=== PATIENT | female | born 1955 | race Caucasian/White ===

== ENCOUNTER 2018-02-25 08:13 | Observation (INO) | payer MEDICARE ==
[~2018-02-25 08:13] MED LIST: CEFAZOLIN 2 GM/50 ML (PMX) 50 ML IVPB; TRANEXAMIC ACID 1,000 MG in DEXTROSE 5% 100 ML IVPB
[2018-02-25] MEDS: GABAPENTIN 300 MG CAP PO ×2 (08:41→21:00)
[2018-02-25] MEDS: traMADol 50 MG TAB PO ×2 (08:41→08:44)
[2018-02-25] MEDS: DEXAMETHASONE 1 MG TAB PO (08:41)
[2018-02-25] MEDS ORDERED: SOD CHLORIDE 0.9% 100 ML, TRANEXAMIC ACID 3,000 MG IRR (10:00)
[2018-02-25] MEDS ORDERED: FENTAnyl 50 MCG/ML VIAL (10:35)
[2018-02-25] MEDS ORDERED: MIDAZOLAM 1 MG/ML 2 ML INJ (10:38)
[2018-02-25] MEDS: POLYMYXIN/BACITRACIN 1L IRRIG (11:03)
[2018-02-25] MEDS: THROMBIN 5000 UNIT VIAL (11:04)
[2018-02-25] MEDS: CA CHLORIDE 10% 10 ML SYRINGE (11:04)
[2018-02-25] MEDS: BUPIVACAINE 0.5% (SDV) 30 ML, EPINEPHrine 0.3 MG, KETOROLAC 30 MG, CLONIDINE 100 MCG, S... IRR (11:12)
[2018-02-25] MEDS ORDERED: ALBUTEROL HFA 8 GM INHALER INH (11:30)
[2018-02-25] MEDS ORDERED: ONDANSETRON 4 MG INJ IV (11:30)
[2018-02-25] MEDS ORDERED: DIPHENHYDRAMINE 50 MG INJ IV (11:30)
[2018-02-25] MEDS ORDERED: ACETAMINOPHEN 500 MG TAB PO (11:30)
[2018-02-25] MEDS ORDERED: OXYCODONE/ACETAMINOPHEN (5/325) TAB PO (11:30)
[2018-02-25] MEDS ORDERED: morphine 2 MG INJ IV (11:30)
[2018-02-25] MEDS ORDERED: ZOLPIDEM 5 MG TAB PO (11:30)
[2018-02-25] MEDS ORDERED: ROCURONIUM 50 MG INJ (11:44)
[2018-02-25] MEDS ORDERED: SUGAMMADEX SODIUM 200 MG/2 ML VIAL IV (11:44)
[2018-02-25] MEDS ORDERED: LIDOCAINE 100 MG SYRINGE (11:44)
[2018-02-25] MEDS ORDERED: PROPOFOL 20 ML (11:44)
[2018-02-25] MEDS ORDERED: CEFAZOLIN 1 GM INJ (11:44)
[2018-02-25] MEDS ORDERED: SUCCINYLCHOLINE CHLORIDE 100 MG/5 ML SYG IV (11:44)
[2018-02-25] MEDS: morphine 2 MG INJ IV (12:15)
[2018-02-25] MEDS: KETOROLAC 15 MG INJ IV (12:16)
[2018-02-25] MEDS: TRANEXAMIC ACID 1,000 MG in DEXTROSE 5% 100 ML IV (12:19)
[2018-02-25] MEDS: CEFAZOLIN 1 GM/50 ML (PMX) 50 ML IVPB ×2 (12:28→21:08)
[2018-02-25] MEDS: DEXAMETHASONE 2 MG TAB PO ×3 (12:35→23:36)
[2018-02-25] MEDS: LACTATED RINGER'S 1,000 ML IV ×2 (14:33→21:28)
[2018-02-25] MEDS: PANTOPRAZOLE (EC) 40 MG TAB PO (17:20)
[2018-02-25] MEDS: BACLOFEN 10 MG TAB PO ×2 (17:20→21:11)
[2018-02-25] MEDS ORDERED: AZELAIC ACID TP (21:00)
[2018-02-25] MEDS: OXYCODONE/ACETAMINOPHEN (5/325) TAB PO (21:05)
[2018-02-25] MEDS: SENNA/DOCUSATE NA (8.6MG/50MG) TAB PO (21:10)
[2018-02-25] MEDS: MONTELUKAST 10 MG TAB PO (21:11)
[2018-02-25] MEDS: GABAPENTIN 100 MG CAP PO (21:11)
[2018-02-25] MEDS: HYDROmorphONE 0.5 MG/0.5 ML SYG IV (23:36)
[2018-02-26] MEDS: CEFAZOLIN 1 GM/50 ML (PMX) 50 ML IVPB (03:56)
[2018-02-26] MEDS: OXYCODONE/ACETAMINOPHEN (5/325) TAB PO ×4 (04:02→23:49)
[2018-02-26] MEDS: LEVOTHYROXINE 100 MCG TAB PO (06:12)
[2018-02-26] MEDS: DEXAMETHASONE 2 MG TAB PO (06:12)
[2018-02-26] MEDS: PANTOPRAZOLE (EC) 40 MG TAB PO ×2 (06:16→17:17)
[2018-02-26] MEDS: LACTATED RINGER'S 1,000 ML IV ×2 (07:28→17:14)
[2018-02-26] MEDS: LORATADINE 10 MG TAB PO (09:54)
[2018-02-26] MEDS: BACLOFEN 10 MG TAB PO ×3 (09:54→21:00)
[2018-02-26] MEDS: GABAPENTIN 100 MG CAP PO ×2 (09:54→21:00)
[2018-02-26] MEDS: FLUOXETINE 20 MG CAP PO (09:54)
[2018-02-26] MEDS: SENNA/DOCUSATE NA (8.6MG/50MG) TAB PO ×2 (09:54→20:59)
[2018-02-26] MEDS: ASPIRIN 81 MG TAB PO (09:54)
[2018-02-26] MEDS: KETOROLAC 15 MG INJ IV ×3 (09:55→21:01)
[2018-02-26] MEDS ORDERED: VITAMIN A & D 5 GM OINT PACKET TOP (12:26)
[2018-02-26] MEDS: MAGNESIUM HYDROXIDE 30ML CUP PO (15:17)
[2018-02-26] MEDS: POLYETHYLENE GLYCOL 17 GM PACKET PO (16:24)
[2018-02-26] MEDS: MONTELUKAST 10 MG TAB PO (21:00)
[2018-02-26] MEDS: GABAPENTIN 300 MG CAP PO (21:01)
[2018-02-27] MEDS: LACTATED RINGER'S 1,000 ML IV ×2 (03:28→13:28)
[2018-02-27] MEDS: KETOROLAC 15 MG INJ IV ×2 (04:46→16:11)
[2018-02-27] MEDS: LEVOTHYROXINE 100 MCG TAB PO (06:46)
[2018-02-27] MEDS: OXYCODONE/ACETAMINOPHEN (5/325) TAB PO ×3 (06:46→18:07)
[2018-02-27] MEDS: PANTOPRAZOLE (EC) 40 MG TAB PO ×2 (06:46→18:07)
[2018-02-27] MEDS: GABAPENTIN 100 MG CAP PO (06:50)
[2018-02-27] MEDS: FLUOXETINE 20 MG CAP PO (09:00)
[2018-02-27] MEDS: LORATADINE 10 MG TAB PO (09:17)
[2018-02-27] MEDS: SENNA/DOCUSATE NA (8.6MG/50MG) TAB PO (09:17)
[2018-02-27] MEDS: ASPIRIN 81 MG TAB PO (09:17)
[2018-02-27] MEDS: BACLOFEN 10 MG TAB PO ×2 (09:17→13:47)
[2018-02-27] MEDS: MAGNESIUM HYDROXIDE 30ML CUP PO (10:53)
[2018-02-27] MEDS: POLYETHYLENE GLYCOL 17 GM PACKET PO (13:48)
== END 2018-02-27 19:25 | disposition home or self-care (01) ==
LOC: SDS 08:13 → REC 12:18 → MS1 13:07
DX: S76.011A Strain of muscle, fascia and tendon of right hip, initial encounter (principal); M70.61 Trochanteric bursitis, right hip; X58.XXXA Exposure to other specified factors, initial encounter
CPT/HCPCS: 20999; 86999; 97116; 97161; 97530; 99217